=== PATIENT | female | born 1975 | race Caucasian/White ===

== ENCOUNTER → 2021-04-18 | Outpatient (CLI) | payer BC ==
--- NOTE | 2021-04-18 12:58 | XR ---
Left knee HISTORY: Pain 3 views of the left knee There is no evident joint effusion. Bone mineralization, joint spaces and alignment are maintained. N o fracture or dislocation. Mild spurring present at the patellofemoral joint is suspected. IMPRESSION: There may be some mild osteophytic change. Knee MRI may be of benefit.
== END | disposition home or self-care (01) ==
LOC: RADXRYALE 11:26
PROVIDERS: ATTEND Physician Assistant
DX: M25.562 Pain in left knee (principal)

== ENCOUNTER 2021-04-24 07:17 | Emergency (ER) | payer BC ==
[2021-04-24 07:23] VITALS: RESP 18; TEMP 97.9
[2021-04-24] MEDS ORDERED: SODIUM CHLORIDE 0.9% 500 ML 500 ML IV STA (07:36)
--- NOTE | 2021-04-24 08:04 | ED ---
General Adult HPI - General Chief complaint: Shortness of Breath Stated complaint: Chest pain, SOB, Arm tingling Time Seen by Provider: 04/24/21 07:27 Source: patient, RN notes reviewed Mode of arrival: ambulatory Limitations: no limitations - History of Present Illness Initial comments: This a 45-year-old female presents emergency Department chief complaint shortness of breath. Patient states she's been having on and off issues for over a week. Patient states that she call it in January and states that she's had problems a started after. Patient has no prior cardiac or lung disease otherwise patient states that she noticed with exertion spent getting increasing symptoms. Patient states that she has not had breath at rest she seems to associate with exertion at work she has meant that she does have a history of anxiety. Patient takes Ativan for that. Patient has no history DVT or PE denies any risk factors for PE. - Related Data Allergies Allergy/AdvReac Type Severity Reaction Status Date / Time No Known Allergies Allergy Verified 04/24/21 07:20 Review of Systems ROS Statement: Those systems with pertinent positive or pertinent negative responses have been documented in the HPI. ROS Other: All systems not noted in ROS Statement are negative. Past Medical History Past Medical History: No Reported History History of Any Multi-Drug Resistant Organisms: None Reported Past Surgical History: No Surgical Hx Reported Past Psychological History: No Psychological Hx Reported Smoking Status: Never smoker Past Alcohol Use History: None Reported Past Drug Use History: None Reported General Exam Limitations: no limitations General appearance: alert, in no apparent distress Head exam: Present: atraumatic, normocephalic, normal inspection Eye exam: Present: normal appearance, PERRL, EOMI. Absent: scleral icterus, conjunctival injection, periorbital swelling ENT exam: Present: normal exam, normal oropharynx, mucous membranes moist Neck exam: Present: normal inspection, full ROM. Absent: tenderness, meningismus, lymphadenopathy Respiratory exam: Present: normal lung sounds bilaterally. Absent: respiratory distress, wheezes, rales, rhonchi, stridor Cardiovascular Exam: Present: regular rate, normal rhythm, normal heart sounds. Absent: systolic murmur, diastolic murmur, rubs, gallop, clicks GI/Abdominal exam: Present: soft, normal bowel sounds. Absent: distended, tenderness, guarding, rebound, rigid Neurological exam: Present: alert, oriented X3 Psychiatric exam: Present: anxious Skin exam: Present: warm, dry, intact, normal color. Absent: rash Course Vital Signs 04/24/21 04/24/21 04/24/21 07:20 07:37 09:14 Temperature 97.9 F Pulse Rate 94 77 Respiratory 18 18 18 Rate Blood Pressure 126/80 123/83 O2 Sat by Pulse 100 97 Oximetry EKG Findings - EKG Comments: EKG Findings:: EKG performed at 17:30 normal sinus rhythm rate of 80 [place] 138 QRS 84 QT/ QTC 365/400 Medical Decision Making - Medical Decision Making Chest x-rays unremarkable., Initial labs do not reveal any acute abnormality. Patient states she does feel better she does have an episode here which became very anxious. The long discussion with the patient stating that she is requiring Ativan at least daily for her anxiety. She was given Zoloft but has not started. Her symptoms may related to anxiety though his been having issues ever since COVID-19. Patient will follow-up with PCP, pulmonology. Return parameters were discussed. - Lab Data Result diagrams: 04/24/21 08:05 04/24/21 08:05 Lab Results 04/24/21 04/24/21 04/24/21 Range/Units 08:05 08:05 08:05 WBC 5.3 (3.8-10.6) k/uL RBC 4.56 (3.80-5.40) m/uL Hgb 14.2 (11.4-16.0) gm/dL Hct 41.8 (34.0-46.0) % MCV 91.7 (80.0-100.0) fL MCH 31.1 (25.0-35.0) pg MCHC 33.9 (31.0-37.0) g/dL RDW 12.5 (11.5-15.5) % Plt Count 229 (150-450) k/uL MPV 7.7 Neutrophils % 68 % Lymphocytes % 24 % Monocytes % 6 % Eosinophils % 2 % Basophils % 0 % Neutrophils # 3.6 (1.3-7.7) k/uL Lymphocytes # 1.3 (1.0-4.8) k/uL Monocytes # 0.3 (0-1.0) k/uL Eosinophils # 0.1 (0-0.7) k/uL Basophils # 0.0 (0-0.2) k/uL PT 10.7 (9.0-12.0) sec INR 1.0 (<1.2) APTT 26.1 (22.0-30.0) sec D-Dimer <0.17 (<0.60) mg/L FEU Sodium 139 (137-145) mmol/L Potassium 3.8 (3.5-5.1) mmol/L Chloride 107 (98-107) mmol/L Carbon Dioxide 21 L (22-30) mmol/L Anion Gap 11 mmol/L BUN 15 (7-17) mg/dL Creatinine 0.72 (0.52-1.04) mg/dL Est GFR (CKD-EPI)AfAm >90 (>60 ml/min/1.73 sqM) Est GFR (CKD-EPI)NonAf >90 (>60 ml/min/1.73 sqM) Glucose 104 H (74-99) mg/dL Calcium 10.5 H (8.4-10.2) mg/dL Total Bilirubin 1.1 (0.2-1.3) mg/dL AST 21 (14-36) U/L ALT 13 (4-34) U/L Alkaline Phosphatase 62 (38-126) U/L Troponin I (0.000-0.034) ng/mL Total Protein 8.7 H (6.3-8.2) g/dL Albumin 5.1 H (3.5-5.0) g/dL Urine HCG, Qual (Not Detectd) 04/24/21 04/24/21 Range/Units 08:05 09:14 WBC (3.8-10.6) k/uL RBC (3.80-5.40) m/uL Hgb (11.4-16.0) gm/dL Hct (34.0-46.0) % MCV (80.0-100.0) fL MCH (25.0-35.0) pg MCHC (31.0-37.0) g/dL RDW (11.5-15.5) % Plt Count (150-450) k/uL MPV Neutrophils % % Lymphocytes % % Monocytes % % Eosinophils % % Basophils % % Neutrophils # (1.3-7.7) k/uL Lymphocytes # (1.0-4.8) k/uL Monocytes # (0-1.0) k/uL Eosinophils # (0-0.7) k/uL Basophils # (0-0.2) k/uL PT (9.0-12.0) sec INR (<1.2) APTT (22.0-30.0) sec D-Dimer (<0.60) mg/L FEU Sodium (137-145) mmol/L Potassium (3.5-5.1) mmol/L Chloride (98-107) mmol/L Carbon Dioxide (22-30) mmol/L Anion Gap mmol/L BUN (7-17) mg/dL Creatinine (0.52-1.04) mg/dL Est GFR (CKD-EPI)AfAm (>60 ml/min/1.73 sqM) Est GFR (CKD-EPI)NonAf (>60 ml/min/1.73 sqM) Glucose (74-99) mg/dL Calcium (8.4-10.2) mg/dL Total Bilirubin (0.2-1.3) mg/dL AST (14-36) U/L ALT (4-34) U/L Alkaline Phosphatase (38-126) U/L Troponin I <0.012 (0.000-0.034) ng/mL Total Protein (6.3-8.2) g/dL Albumin (3.5-5.0) g/dL Urine HCG, Qual Not Detected (Not Detectd) Disposition Clinical Impression: Dyspnea, Palpitations, History of COVID-19, Anxiety Disposition: HOME SELF-CARE Condition: Stable Instructions (If sedation given, give patient instructions): Long COVID (ED) Additional Instructions: Please return to the Emergency Department if symptoms worsen or any other concerns. Is patient prescribed a controlled substance at d/c from ED?: No Referrals: Jose Armenta DO [Primary Care Provider] - 1-2 days Jocelynn León MD [STAFF PHYSICIAN] - 1-2 days Time of Disposition: 10:07
[2021-04-24 08:15] LABS: Basophils % (A) 0 %; Eosinophils # (A) 0.1 k/uL (0-0.7); Eosinophils % (A) 2 %; HCT 41.8 % (34.0-46.0); HGB 14.2 gm/dL (11.4-16.0); Lymphocytes # (A) 1.3 k/uL (1.0-4.8); Lymphocytes % (A) 24 %; MCH 31.1 pg (25.0-35.0); MCHC 33.9 g/dL (31.0-37.0); MCV 91.7 fL (80.0-100.0); Mean Platelet Volume 7.7; Monocytes # (A) 0.3 k/uL (0-1.0); Monocytes % (A) 6 %; Neutrophils # (A) 3.6 k/uL (1.3-7.7); Neutrophils % (A) 68 %; Platelet Count 229 k/uL (150-450); RBC 4.56 m/uL (3.80-5.40); RDW 12.5 % (11.5-15.5); WBC 5.3 k/uL (3.8-10.6)
--- NOTE | 2021-04-24 08:25 | XR ---
EXAMINATION TYPE: XR chest 2V DATE OF EXAM: 04/24/2021 COMPARISON: NONE HISTORY: Difficulty breathing, shortness of breath TECHNIQUE: Frontal and lateral views of the chest are obtained. FINDINGS: There is no focal air space opacity, pleural effusion, or pneumothorax seen. The cardiac silhouette size is within normal limits. There are overlying leads. There is a pectus deformity. The osseous structures are intact. IMPRESSION: No acute cardiopulmonary process.
[2021-04-24 08:27] LABS: Partial Thromboplastin Time 26.1 sec (22.0-30.0); Prothrombin Time 10.7 sec (9.0-12.0)
[2021-04-24 08:31] LABS: ALT 13 U/L (4-34); AST 21 U/L (14-36); African American GFR (CKD) >90 (>60 ml/min/1.73 sqM); Albumin 5.1 g/dL (3.5-5.0); Alkaline Phosphatase 62 U/L (38-126); Anion Gap 11 mmol/L; Blood Urea Nitrogen 15 mg/dL (7-17); Calcium 10.5 mg/dL (8.4-10.2); Carbon Dioxide 21 mmol/L (22-30); Chloride 107 mmol/L (98-107); Glucose 104 mg/dL (74-99); Non-African American GFR(CKD) >90 (>60 ml/min/1.73 sqM); Potassium 3.8 mmol/L (3.5-5.1); Sodium 139 mmol/L (137-145); Total Bilirubin 1.1 mg/dL (0.2-1.3); Total Protein 8.7 g/dL (6.3-8.2)
[2021-04-24] MEDS ORDERED: LORazepam 2 MG/ML INJ IV STA (08:54)
[2021-04-24 10:21] VITALS: BP 110/80; PULSE 79
== END 2021-04-24 10:20 | disposition home or self-care (01) ==
LOC: EC 07:17 → SUPCPDRO 07:17 → EC 10:20
DX: R06.00 Dyspnea, unspecified (principal); F41.9 Anxiety disorder, unspecified; Z86.16 Personal history of COVID-19
CPT/HCPCS: 36415; 71046; 80053; 81025; 84484; 85025; 85379; 85610; 85730; 93005; 99285

== ENCOUNTER → 2021-09-08 | Outpatient (CLI) | payer BC ==
--- NOTE | 2021-09-09 07:10 | US ---
EXAMINATION TYPE: US kidneys/renal and bladder DATE OF EXAM: 09/08/2021 COMPARISON: NONE CLINICAL HISTORY: R10.2 PELVIC PAIN,N30.81 CYSTITIS WITH HEMATURIA. multiple UTI's for 3 years EXAM MEASUREMENTS: Right Kidney: 10.4 x 4.2 x 4.1 cm Left Kidney: 9.7 x 4.1 x 5.1 cm Right Kidney: 0.8cm lateral cyst seen Left Kidney: No hydronephrosis or masses seen Bladder: wnl Bilateral Jets seen: yes There is no evidence for hydronephrosis at this point in time. No nephrolithiasis is seen. No hayes s are identified. The urinary bladder is anechoic. Bilateral ureteral jets are seen. IMPRESSION: No hydronephrosis or nephrolithiasis.
== END | disposition home or self-care (01) ==
LOC: RADUSWWP 16:16
PROVIDERS: ATTEND Family Medicine
DX: R10.2 Pelvic and perineal pain (principal); N30.81 Other cystitis with hematuria
CPT/HCPCS: 76770

== ENCOUNTER → 2021-12-04 | Outpatient (CLI) | payer BC ==
--- NOTE | 2021-12-04 13:07 | US ---
EXAMINATION TYPE: US pelvic complete DATE OF EXAM: 12/04/2021 COMPARISON: NONE CLINICAL HISTORY: 46-year-old female R10.2 PELVIC AND PERINEAL PAIN. Chronic right pelvic pain TECHNIQUE: Transabdominal sonographic images of the pelvis were acquired. Date of LMP: 11/23/2021 FINDINGS: EXAM MEASUREMENTS: Uterus: 8.2 x 3.9 x 4.9 cm Endometrial Stripe: 0.50 cm Right Ovary: 2.9 x 3.0 x 2.9 cm for volume of 12.6 mL. Left Ovary: 2.4 x 1.8 x 2.4 cm for a volume of 5.5 mL. 1. Uterus: Anteverted. Heterogeneous myometrium without discrete mass. 2. Endometrium: wnl 3. Right Ovary: Dominant follicle measuring 2.0 x 2.0 x 2.1 cm 4. Left Ovary: Follicular changes present. 5. Bilateral Adnexa: Prominent left adnexal vessels. Otherwise unremarkable. 6. Posterior cul-de-sac: wnl IMPRESSION: 1. Heterogeneous myometrium is nonspecific and may reflect diffuse small fibroid change or adenomyosi s. 2. Follicular changes of the ovaries; dominant follicle measuring 2.0 cm and the right ovary. 3. Prominent left adnexal vascularity/parauterine varices. Findings may be transient and physiologic or could reflect pelvic congestion syndrome. Clinically correlate.
== END | disposition home or self-care (01) ==
LOC: RADUSWWP 10:51
PROVIDERS: ATTEND Family Medicine
DX: R10.2 Pelvic and perineal pain (principal)
CPT/HCPCS: 76856

== ENCOUNTER → 2024-03-01 | Outpatient (CLI) | payer BC ==
--- NOTE | 2024-03-01 15:40 | XR ---
Right shoulder HISTORY: Pain. COMPARISON: None TECHNIQUE: 3 views right shoulder were obtained. There is no fracture, dislocation or focal intraosseous abnormality. There are soft tissue calcificat ions in the region of the greater tuberosity humerus possibly indicating calcific tendinitis involvin g the rotator cuff. The joint spaces well-preserved with no definite osteoarthritis of the AC joint or glenohumeral joint . IMPRESSION: 1. No acute fracture or dislocation. 2. Probable calcific tendinitis described above. [facility], , 03/01/2024 3:38 PM
== END | disposition home or self-care (01) ==
LOC: MERGE 15:13 → RADXRYALE 15:13 → EDSEX 15:13
PROVIDERS: ATTEND Physician Assistant
DX: M25.511 Pain in right shoulder (principal)